=== PATIENT | male | born 1980 | race Caucasian/White ===

== ENCOUNTER 2020-12-27 03:45 | Inpatient (IN) | payer MEDICARE, OTHER ==
[~2020-12-27] VITALS: Ht 200.7 cm; Wt 79.4 kg
[~2020-12-27 03:45] MED LIST: ACETAMINOPHEN325 MG PO; ALDACTONE 25MG25 MG PO; AMLODIPINE BESYL5 MG PO; ATORVASTATIN CA20 MG PO; BUMETANIDE1 MG PO; COZAAR 50MG TAB50 MG PO; DEPAKOTE125 MG PO; DILTIAZEM 24HR300 M1 PO; DIVALPROEX SOD125 M1 PO; FENOFIBRATE160 MG PO; FOLIC ACID 1 MG1 MG PO; FUROSEMIDE80 MG PO; GLIPIZIDE5 MG PO; GLUCOPHAGE XR500 M1 PO; LANTUS INS100 UTS/M1 SQ; LEVEMIR FL100 UNIT/1 SQ; LIPITOR TAB 1010 MG PO; LISINOPRIL10 MG PO; METOPROLOL SUC100 MG PO; METOPROLOL TART25 MG PO; MYCOSTATIN OINT15 GM TOP; NICOTINE PATCH1 EAC5 TD; NITROGLYCERIN0.4 MG SL; NOVOLOG 10100 UNITS/ INJ; OMEPRAZOLE20 M2 PO; PAROXETINE HCL40 MG PO; PAXIL40 MG PO; PROTONIX 40 MG40 M1 PO; SIMVASTATIN20 MG PO; SYNTHROID112 MCG PO; VICTOZA 1818 MG/3 ML SQ; VITAMIN B-1100 M1 PO
--- NOTE | 2020-12-27 05:45 | NUR ---
Upon patient arrival, AV fistula noted. BP cuff noted as well to left upper arm. Removed BP cuff, restricted arm band applied at this time. notified
--- NOTE | 2020-12-27 05:49 | NUR ---
Upon arrival, BP 180/110 (R arm), HR 114. MD notified verbally.
[2020-12-27 13:12] LABS: RED BLOOD COUNT 3.72 M/UL (4.20-5.50); WHITE BLOOD COUNT 6.9 K/UL (4.5-11.0)
--- NOTE | 2020-12-27 17:54 | NUR ---
CONTACTED AT THIS TIME TO SEE IF HE FEELS THAT PATIENT SHOULD BE TRANSFERED DUE TO ABNORMAL VITAL STIGNS, OXYGEN SUPPORT, LOW BLOOD GLUCOSE LEVELS AND INCREASING ACUITY OF PATIENT. PATIENT IS IN DIALYSIS AT THIS TIME. HE STATES THAT HE WILL GO AND SEE THE PATIENT AND SEE IF HE SHOULD BE MOVED TO A HIGHER LEVEL OF CARE.
[2020-12-28 04:33] LABS: HEMOGLOBIN 8.2 gm/dl (14.0-17.5); WHITE BLOOD COUNT 5.6 K/UL (4.5-11.0)
[2020-12-28 04:37] LABS: RED BLOOD COUNT 3.29 M/UL (4.20-5.50)
[2020-12-29 05:26] LABS: HEMOGLOBIN 9.4 gm/dl (14.0-17.5)
[2020-12-29 05:27] LABS: RED BLOOD COUNT 3.67 M/UL (4.20-5.50); WHITE BLOOD COUNT 7.9 K/UL (4.5-11.0)
[2020-12-30 04:09] LABS: HEMOGLOBIN 9.8 gm/dl (14.0-17.5); RED BLOOD COUNT 3.82 M/UL (4.20-5.50); WHITE BLOOD COUNT 6.7 K/UL (4.5-11.0)
[2020-12-31 05:23] LABS: HEMOGLOBIN 9.7 gm/dl (14.0-17.5); RED BLOOD COUNT 3.81 M/UL (4.20-5.50); WHITE BLOOD COUNT 6.5 K/UL (4.5-11.0)
[2020-12-31] MEDS ORDERED: COZAAR 50MG TAB50 MG PO (10:24)
[2020-12-31] MEDS ORDERED: METOPROLOL SUC100 MG PO (10:24)
--- NOTE | 2020-12-31 16:41 | NUR ---
12/31/20 9670 [facility] REP CALLED BACK, WAS APPROVED AND NURSE SHOULD BE HERE WITH THE [facility] WITHIN A HOUR AND HALF. FAMILY NOTIFIED OF PATIENT BEING DISCHAGED
--- NOTE | 2020-12-31 18:10 | NUR ---
12/31/201809 DR PADILLA NOTIFIED OF UNABLE TO APPLY LIFEVEST DUE TO NO ONE TO TEACH, [employer] REP TALKED TO MOTHER AND SHE WILL NOT BE ABLE TO COME HERE UNTIL TOMORROW AROUND 12 OR 1. SAID TO CANCEL DISCHARGE. ACTIVITIES COUNSELOR GARRY NOTIFIED
[2021-01-01 04:35] LABS: HEMOGLOBIN 9.5 gm/dl (14.0-17.5); RED BLOOD COUNT 3.86 M/UL (4.20-5.50); WHITE BLOOD COUNT 7.3 K/UL (4.5-11.0)
[2021-01-01 10:08] LABS: HBSAG SCREEN Negative (Negative); HEP A AB, IGM Negative (Negative); HEP B CORE AB, IGM Negative (Negative); HEP C VIRUS AB <0.1 (0.0-0.9)
== END 2021-01-01 18:55 | disposition home health service (06) | DRG 291 ==
LOC: OBS 03:45 → PROG CARE 04:12 → M/S 04:12 → PROG CARE 20:25
PROVIDERS: Internal Medicine; ADMIT Internal Medicine
PROC: 05PYX3Z Removal of Infusion Device from Upper Vein, External Approach (ICD-10-PCS; 2020-12-30)
PROC: 5A1D70Z Performance of Urinary Filtration, Intermittent, Less than 6 Hours Per Day (ICD-10-PCS; principal; 2020-12-31)
DX: I13.2 Hypertensive heart and chronic kidney disease with heart failure and with stage 5 chronic kidney disease, or end stage renal disease (principal); E43 Unspecified severe protein-calorie malnutrition; J96.01 Acute respiratory failure with hypoxia; E87.1 Hypo-osmolality and hyponatremia; I50.40 Unspecified combined systolic (congestive) and diastolic (congestive) heart failure; Z68.1 Body mass index [BMI] 19.9 or less, adult; G40.909 Epilepsy, unspecified, not intractable, without status epilepticus; I48.91 Unspecified atrial fibrillation; F41.9 Anxiety disorder, unspecified; F32.9 Major depressive disorder, single episode, unspecified; Z20.822 Contact with and (suspected) exposure to COVID-19; E11.22 Type 2 diabetes mellitus with diabetic chronic kidney disease; E11.65 Type 2 diabetes mellitus with hyperglycemia; E78.5 Hyperlipidemia, unspecified; E03.9 Hypothyroidism, unspecified; Z96.662 Presence of left artificial ankle joint; I42.9 Cardiomyopathy, unspecified; E88.09 Other disorders of plasma-protein metabolism, not elsewhere classified; K21.9 Gastro-esophageal reflux disease without esophagitis; R74.01 Elevation of levels of liver transaminase levels; D53.9 Nutritional anemia, unspecified; E87.6 Hypokalemia; Z74.01 Bed confinement status; Z91.14 Patient's other noncompliance with medication regimen; Z80.8 Family history of malignant neoplasm of other organs or systems; Z79.4 Long term (current) use of insulin; Z91.030 Bee allergy status; Z82.49 Family history of ischemic heart disease and other diseases of the circulatory system; Z83.3 Family history of diabetes mellitus; Z87.891 Personal history of nicotine dependence; L89.151 Pressure ulcer of sacral region, stage 1; B94.8 Sequelae of other specified infectious and parasitic diseases
CPT/HCPCS: ECHO; 36415; 71045; 80048; 80053; 80074; 80202; 82533; 82550; 82553; 82962; 82977; 83690; 83735; 84100; 84484; 85025; 86140; 90935; 90937; 93005; 93306; 94760; A6212; C9113; J2185; J2405; J3370; J7030; J7070; P9047; U0002

== ENCOUNTER 2021-01-09 17:37 | Inpatient (IN) | payer MEDICARE, OTHER ==
[~2021-01-09] VITALS: Ht 193 cm; Wt 90.7 kg
[2021-01-09 20:39] LABS: HEMOGLOBIN 9.7 gm/dl (14.0-17.5); RED BLOOD COUNT 3.84 M/UL (4.20-5.50); WHITE BLOOD COUNT 6.8 K/UL (4.5-11.0)
[2021-01-10 03:57] LABS: HEMOGLOBIN 9.9 gm/dl (14.0-17.5); RED BLOOD COUNT 3.85 M/UL (4.20-5.50); WHITE BLOOD COUNT 6.8 K/UL (4.5-11.0)
[2021-01-10] MEDS ORDERED: TOPROL XL50 MG PO (10:25)
[2021-01-10] MEDS ORDERED: COZAAR100 MG PO (10:26)
[2021-01-10] MEDS ORDERED: LANTUS SOL100 UNIT/1 SQ (10:30)
[2021-01-10] MEDS ORDERED: BASAGLAR K100 UNIT/1 SQ (10:32)
[2021-01-10] MEDS ORDERED: AMLODIPINE BESYL5 MG PO (10:33)
[2021-01-10] MEDS ORDERED: ONDANSETRON HCL4 MG PO (10:35)
[2021-01-10] MEDS ORDERED: FEROSUL325 MG PO (10:35)
[2021-01-10] MEDS ORDERED: DULCOLAX STOOL100 MG PO (10:36)
[2021-01-10] MEDS ORDERED: NEURONTIN600 MG PO (10:37)
[2021-01-10] MEDS ORDERED: TOPROL XL 50 MG50 MG PO (17:22)
[2021-01-11 02:35] LABS: HEMOGLOBIN 9.6 gm/dl (14.0-17.5); RED BLOOD COUNT 3.72 M/UL (4.20-5.50); WHITE BLOOD COUNT 6.6 K/UL (4.5-11.0)
--- NOTE | 2021-01-11 05:22 | NUR ---
AT APPROXIMATELY 0315, LAB CALLED TO REPORT A CRITICAL BS OF 45. PATIENT ABLE TO RESPOND TO QUESTIONS BUT WAS PALE AND DIAPHORETIC. ATTEMPTED TO COAX PATIENT TO DRINK APPLEJUICE BUT PATIENT SEEMED UNABLE. PULLED D50 FROM [employer] BUT THEN DISCOVERED PATIENT HAD NO IV ACCESS. SEVERAL ATTEMPTS MADE BY DELL DARBY AND TAL DARBY TO GAIN IV ACCESS BUT PATIENT HAD RESTRICTED EXTREMITY BRACELET TO LEFT ARM AND HAD NO VIABLE VEINS IN THE RIGHT. DELL DARBY ATTEMPTED TO GAIN IV ACCESS USING ULTRASOUND MACHINE TO NO AVAIL. ATTEMPTS WERE MADE TO GAIN IV ACCESS, CONTINUED TO CHECK PATIENT'S BS AND NEXT CHECK REPORTED BLOOD SUGAR OF 15. RAPID RESPONSE CALLED, CRASH CART PULLED INTO ROOM. PATIENT WAS NO LONGER RESPONSIVE AT THIS TIME WITH RESPIRATIONS OF LESS THAN 12. GLUCOSE GEL APPLIED TO MUCOUS MEMBRANES BY LEANDRO DARBY IN AN ATTEMPT TO RAISE BLOOD SUGAR. DELL DARBY ATTEMPTED TO OBTAIN IV ACCESS IN THE RIGHT ARM SEVERAL TIMES BUT WAS UNABLE TO. IV ACCESS WAS FINALLY OBTAINED WITH A 20G TO THE RIGHT IJ AND 1 AMP D50 ADMINISTERED AT THAT TIME. PATIENT'S BLOOD SUGAR WAS CHECKED, RESULT WAS 186. PATIENT SAT UP IN BED, WAS RESPONSIVE TO QUESTIONS AND TALKATIVE. BS CHECKS WILL BE PERFORMED Q15 MINUTES X 2 HRS PER HYPOGLYCEMIA PROTOCOL. SEE LAB RESULTS. PATIENT HAS EATEN PEANUT BUTTER AND CRACKERS, POPSICLES AND DRANK SEVERAL CUPS OF APPLEJUICE. PATIENT CURRENTLY RESTING IN BED WITH EYES CLOSED.
[2021-01-12 02:34] LABS: HEMOGLOBIN 8.4 gm/dl (14.0-17.5); WHITE BLOOD COUNT 5.5 K/UL (4.5-11.0)
[2021-01-12 02:36] LABS: RED BLOOD COUNT 3.27 M/UL (4.20-5.50)
[2021-01-12 08:14] LABS: HBSAG SCREEN Negative (Negative); HEP A AB, IGM Negative (Negative); HEP B CORE AB, IGM Negative (Negative); HEP C VIRUS AB 0.2 (0.0-0.9)
--- NOTE | 2021-01-12 11:10 | NUR ---
PT TAKEN DOWNSTAIRS FOR DIALYSIS TREATMENT
--- NOTE | 2021-01-12 14:00 | NUR ---
NO CHANGE FROM PREVIOUS ASSESSMENT
[2021-01-16 15:14] LABS: BETA-HYDROXYBUTYRATE 0.3 mg/dL (.)
[2021-01-17 03:11] LABS: HEMOGLOBIN 9.3 gm/dl (14.0-17.5); RED BLOOD COUNT 3.61 M/UL (4.20-5.50); WHITE BLOOD COUNT 6.9 K/UL (4.5-11.0)
[2021-01-18 09:46] LABS: BUN/CREATININE RATIO 13 (0-10)
--- NOTE | 2021-01-18 14:00 | NUR ---
NO CHANGE FROM PREVIOUS ASSESSMENT, PT REMAINS LETHARGIC BUT ARROUSABLE
[2021-01-18 19:09] LABS: ACETOHEXAMIDE Negative ug/mL (20-60); CHLORPROPAMIDE Negative ug/mL (75-250); GLIMEPIRIDE Negative ng/mL (80-250); GLIPIZIDE Negative ng/mL (200-1000); GLYBURIDE Negative ng/mL (UP TO 1500); NATEGLINIDE Negative ng/mL (UP TO 10000); REPAGLINIDE Negative ng/mL (UP TO 200); TOLAZAMIDE Negative ug/mL (UP TO 80); TOLBUTAMIDE Negative ug/mL (40-100)
[2021-01-19 14:56] LABS: HEMOGLOBIN 9.5 gm/dl (14.0-17.5); RED BLOOD COUNT 3.74 M/UL (4.20-5.50)
[2021-01-19 14:57] LABS: WHITE BLOOD COUNT 4.8 K/UL (4.5-11.0)
[2021-01-21 05:04] LABS: HEMOGLOBIN 10.3 gm/dl (14.0-17.5); RED BLOOD COUNT 3.97 M/UL (4.20-5.50); WHITE BLOOD COUNT 5.4 K/UL (4.5-11.0)
[2021-01-21] MEDS ORDERED: ELIQUIS 5 MG TAB5 MG PO (09:08)
[2021-01-21] MEDS ORDERED: METOPROLOL SUC100 MG PO (09:08)
[2021-01-22 05:28] LABS: HEMOGLOBIN 10.2 gm/dl (14.0-17.5); RED BLOOD COUNT 3.98 M/UL (4.20-5.50); WHITE BLOOD COUNT 6.4 K/UL (4.5-11.0)
[2021-01-23 05:10] LABS: HEMOGLOBIN 10.5 gm/dl (14.0-17.5); RED BLOOD COUNT 4.07 M/UL (4.20-5.50); WHITE BLOOD COUNT 5.5 K/UL (4.5-11.0)
[2021-01-25 00:58] LABS: HEMOGLOBIN 8.9 gm/dl (14.0-17.5); RED BLOOD COUNT 3.46 M/UL (4.20-5.50)
--- NOTE | 2021-01-28 05:37 | NUR ---
rectal temp 98.8
--- NOTE | 2021-01-28 12:18 | NUR ---
[facility] IN [place] WAS CALLED AT 1210.
== END 2021-01-28 08:21 | disposition expired | DRG 640 ==
LOC: ER1 17:37 → CDU 21:40 → PROG CARE 21:40
PROVIDERS: Internal Medicine; Internal Medicine Infectious Disease; Internal Medicine Nephrology; Physician Assistant; ADMIT Internal Medicine
PROC: 5A1D70Z Performance of Urinary Filtration, Intermittent, Less than 6 Hours Per Day (ICD-10-PCS; principal; 2021-01-10)
PROC: 5A1D70Z Performance of Urinary Filtration, Intermittent, Less than 6 Hours Per Day (ICD-10-PCS; 2021-01-12)
PROC: 5A1D70Z Performance of Urinary Filtration, Intermittent, Less than 6 Hours Per Day (ICD-10-PCS; 2021-01-15)
PROC: 5A1D70Z Performance of Urinary Filtration, Intermittent, Less than 6 Hours Per Day (ICD-10-PCS; 2021-01-17)
PROC: 5A1D70Z Performance of Urinary Filtration, Intermittent, Less than 6 Hours Per Day (ICD-10-PCS; 2021-01-19)
PROC: 5A1D70Z Performance of Urinary Filtration, Intermittent, Less than 6 Hours Per Day (ICD-10-PCS; 2021-01-22)
PROC: 5A1D70Z Performance of Urinary Filtration, Intermittent, Less than 6 Hours Per Day (ICD-10-PCS; 2021-01-24)
PROC: 5A1D70Z Performance of Urinary Filtration, Intermittent, Less than 6 Hours Per Day (ICD-10-PCS; 2021-01-26)
DX: E87.70 Fluid overload, unspecified (principal); N18.6 End stage renal disease; I50.23 Acute on chronic systolic (congestive) heart failure; E43 Unspecified severe protein-calorie malnutrition; G93.41 Metabolic encephalopathy; J96.21 Acute and chronic respiratory failure with hypoxia; J69.0 Pneumonitis due to inhalation of food and vomit; I13.2 Hypertensive heart and chronic kidney disease with heart failure and with stage 5 chronic kidney disease, or end stage renal disease; Z68.1 Body mass index [BMI] 19.9 or less, adult; N17.9 Acute kidney failure, unspecified; I42.9 Cardiomyopathy, unspecified; E87.1 Hypo-osmolality and hyponatremia; Z66 Do not resuscitate; E87.5 Hyperkalemia; I95.9 Hypotension, unspecified; R62.7 Adult failure to thrive; F32.9 Major depressive disorder, single episode, unspecified; G40.909 Epilepsy, unspecified, not intractable, without status epilepticus; F79 Unspecified intellectual disabilities; D50.9 Iron deficiency anemia, unspecified; I48.0 Paroxysmal atrial fibrillation; E11.649 Type 2 diabetes mellitus with hypoglycemia without coma; D63.1 Anemia in chronic kidney disease; E03.9 Hypothyroidism, unspecified; F41.9 Anxiety disorder, unspecified; E78.5 Hyperlipidemia, unspecified; Z91.030 Bee allergy status; Z82.49 Family history of ischemic heart disease and other diseases of the circulatory system; Z86.16 Personal history of COVID-19; Z91.15 Patient's noncompliance with renal dialysis; Z99.2 Dependence on renal dialysis; Z83.3 Family history of diabetes mellitus; Z87.891 Personal history of nicotine dependence; Z74.01 Bed confinement status; Z79.890 Hormone replacement therapy; Z79.4 Long term (current) use of insulin; Z79.899 Other long term (current) drug therapy
CPT/HCPCS: 36415; 51702; 70450; 71045; 80048; 80053; 80069; 80074; 80076; 80202; 82010; 82533; 82550; 82553; 82728; 82962; 83036; 83540; 83550; 83605; 83735; 83874; 84100; 84206; 84439; 84443; 84481; 84484; 85025; 85027; 85610; 85730; 87040; 90935; 90937; 93005; 94640; 94664; 94760; 96374; 97110; 97110-GP-CQ; 97161; 97166; 97530; 97530-GP-CQ; 99285; A6212; G0378; G0480; G0481; J0360; J1644; J2270; J2543; J3370; J7030; J7070; P9047; Q4081; Q5105; U0002